=== PATIENT | female | born 1950 | race Caucasian/White ===

== ENCOUNTER 2024-02-07 09:08 | Outpatient (CLI) | payer MEDICARE, SELFPAY ==
--- NOTE | ~2024-02-07 | US_ITS ---
US arterial ankle brachial ind INDICATION: Diabetes. High cholesterol. TECHNIQUE: Segmental pressures and plethysmographic and Doppler waveforms of the brachial and lower e xtremity arteries were obtained. COMPARISON: None. FINDINGS: Right and left brachial artery pressures of 146 mm Hg and 146 mm Hg, respectively, are concordant (no rmal difference <= 30 mmHg). The right ankle-brachial index (ERIK) is 1.12 (normal >= 0.9-1.0). The right great toe-brachial index (TBI) is 0.54 (normal >= 0.60). The left ERIK is 1.18. The left TBI is 0.55. IMPRESSION: 1. Mildly decreased bilateral toe brachial indices, consistent with peripheral arterial disease. Reviewed, dictated and finalized at location A.
== END 2024-02-07 09:09 | disposition home or self-care (01) ==
LOC: ANHIMG 09:11
PROVIDERS: PCP Orthopaedic Surgery; Visit Provider Orthopaedic Surgery
DX: R09.89 Other specified symptoms and signs involving the circulatory and respiratory systems (principal)
CPT/HCPCS: 93922

== ENCOUNTER 2024-02-09 10:05 | Outpatient (CLI) | payer MEDICARE, SELFPAY ==
--- NOTE | 2024-02-09 11:04 | ECG_ITS ---
SEE SCANNED COPY FOR CONFIRMED REPORT MTDD
[2024-02-09 11:26] LABS: Basophils Absolute Auto 0.1 K/mm3 (0.0-0.1); Basophils Percent Auto 0.4 % (0.2-1.2); Hematocrit 46.2 % (37.0-47.0); Hemoglobin 15.1 g/dL (12.0-15.0); Immature Granulocyte Absolute 0.09 K/mm3 (0.00-0.031); Immature Granulocyte Percent A 0.7 % (0-0.5); Lymphocytes Absolute Auto 0.94 K/mm3 (0.9-3.2); Lymphocytes Percent Auto 7.4 % (18.3-44.2); Mean Corpuscular HGB Conc 32.7 g/dl (32-36); Mean Corpuscular Hemoglobin 29.8 pg (26-34); Mean Corpuscular Volume 91.1 fl (80-100); Mean Platelet Volume 10.5 fl (7.4-10.4); Monocytes Absolute Auto 0.4 K/mm3 (0.1-0.6); Monocytes Percent Auto 3.1 % (2.6-8.5); Neutrophils Absolute Auto 11.3 K/mm3 (1.3-6.7); Neutrophils Percent Auto 88.4 % (45.5-73.1); Platelet Count Result 267 k/mm3 (150-375); Red Blood Count 5.07 M/mm3 (4.2-5.4); Red Cell Distribution Width 14.2 % (11.5-14.5); White Blood Count 12.8 K/mm3 (4.5-10.0)
[2024-02-09 11:35] LABS: Albumin Level 4.2 g/dL (3.5-5.1); Anion Gap 8 mmol/L (4-12); Blood Urea Nitrogen 17 mg/dL (7-17); Calcium 10.1 mg/dL (8.4-10.2); Carbon Dioxide 30 mmol/L (22-30); Chloride 100 mmol/L (98-107); Estimated Glomerular Filt Rate > 60; Glucose 130 mg/dL (65-110); Potassium 4.1 mmol/L (3.4-5.0); Sodium 138 mmol/L (137-145); Urine Cotinine NEGATIVE
[2024-02-09 11:43] LABS: Hemoglobin A1C 5.4 % (<5.7)
== END 2024-02-09 10:06 | disposition home or self-care (01) ==
LOC: ANHSURGERY 10:07
PROVIDERS: PCP Physician Assistant Medical; Visit Provider Orthopaedic Surgery
DX: Z01.818 Encounter for other preprocedural examination (principal); M17.11 Unilateral primary osteoarthritis, right knee
CPT/HCPCS: 80048; 80307; 82040; 83036; 85025; 87081; 93005

== ENCOUNTER 2024-02-10 09:14 | Outpatient (CLI) | payer MEDICARE, SELFPAY ==
--- NOTE | ~2024-02-10 | US_ITS ---
EXAMINATION: US art doppler w press LE BI DATE: 02/10/2024 10:38 INDICATION: Other specified symptoms and signs involving the circulatory and respiratory systems. [facility] factors of diabetes, hypertension, hypercholesterolemia and prior smoki ng. TECHNIQUE: Segmental pressures and plethysmographic and Doppler waveforms of the brachial and lower e xtremity arteries were obtained. COMPARISON: None. FINDINGS: Right and left brachial artery pressures of 130 mm Hg and 162 mm Hg, respectively, are concordant (no rmal difference <= 30 mmHg). The right and left high-thigh pressure indices are 1.21 and 1.25, respec tively (normal > 1.2). The right ankle-brachial index (ERIK) is 1.16 (normal >= 0.9-1). The right great toe-brachial index (T BI) is 0.32 (normal >= 0.6-0.8). The right lower extremity segmental pressure gradients are increased between the right above and tgvcn-zyc-utbv popliteal arteries (normal gradients <= 20-30 mmHg betwee n adjacent levels on the same leg or the same levels on the two legs). Arterial waveforms are triphas ic at the right common femoral, superficial femoral and popliteal arteries and biphasic at the right posterior tibial and dorsalis pedis arteries, all with brisk systolic upstrokes. The left ERIK is 1.08. The left TBI is 0.36. The left lower extremity segmental pressure gradients are increased between the left sfggq-twl-qidm popliteal artery and left dorsalis pedis artery. Arterial waveforms are biphasic with brisk systolic upstrokes throughout the arteries of the left lower limb. IMPRESSION: 1. Arterial occlusive disease to bilateral lower limbs with normal bilateral ABIs but mildly decrease d bilateral high thigh pressure indices and moderately decreased bilateral TBIs. Reviewed, dictated and finalized at location A. IMPRESSION: 1. 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
== END 2024-02-10 09:15 | disposition home or self-care (01) ==
PROVIDERS: PCP Physician Assistant Medical; Visit Provider Orthopaedic Surgery
DX: R09.89 Other specified symptoms and signs involving the circulatory and respiratory systems (principal)
CPT/HCPCS: 93923

== ENCOUNTER 2024-02-23 00:43 | Day surgery (SDC) | payer MEDICARE, SELFPAY ==
[2024-02-09 10:26] VITALS: BMI 25.7
--- NOTE | 2024-02-09 10:41 | PC.NURSE ---
Report to the Outpatient Waiting Room, entrance under the green pavilion located off [facility], at time _9:30 AM on date _02/23/24 . Planned Procedure Time: ___11:30 AM . Time changes happen often and if your time is changed the preop area will call you the afternoon before. - You and your visitor will be asked to self-screen and do not enter if you have any COVID symptoms. - A mask is optional within the hospital at this time. Patients may have clear liquids (water, carbonated beverages, clear teas, apple juice) until 3 hours prior to surgery ( 8:30 AM)with a maximum of 20 ounces. - No food from midnight until time of surgery - Infants may have breast milk until 4 hours before surgery, infant formula 6 hours prior to surgery. - Children will be allowed to drink immediately following surgery. If applicable, please bring a bottle or sippy cup to assist with drinking. Juice, water, soda, and popsicles are readily available. For infants on formula, please bring formula the day of surgery. Pacifiers are allowed. Take the following medications with a SIP of water the morning of surgery: _AMLODIPINE,GABAPENTIN,LEVOTHYROXINE DO NOT STOP ANY OF YOUR OTHER PRESCRIPTION MEDICATIONS PRIOR TO SURGERY ?EXCEPT THE FOLLOWING Medications to discontinue per physician _PT STATES HOLD ALL VITAMINS AND SUPPLEMENTS 7 DAYS PRE OP AND _HOLD ALEVE 7 DAYS PRE OP PER DR HOOK.LAST DOSE 02/15/24 MAY TAKE TYLENOL IF NEEDED FOR PAIN. MAY CONTINUE CELEBREX PER DR HOOK BUT DON'T TAKE MORNING OF SURGERY. PT STATES HOLD MOUNJARO PER DR HOOK LAST DOSE 02/13/24 Please no make-up, nail german, hairspray, perfume, deodorant, or body powder the day of surgery. No jewelry (including any body piercings) or valuables the day of surgery, leave them at home. Please take a shower or bath the night before, or the morning of, surgery with an antibacterial soap. Wear comfortable, loose fitting clothing. Children are encouraged to wear pajamas. - Jewelry must be removed prior to entering the operating room. Rings and piercings that are not removed may be cut off. - The hospital will not accept responsibility for valuables. - Please leave all valuables, including medications, at home the day of surgery. If you are going home after surgery, a licensed m48/m60 tank driver must drive you home. - NO public transportation without another adult if you receive anesthesia. - We recommend that an adult stay with you for 24 hours following discharge. - We also recommend that you do not drive, make important decision, drink alcoholic beverages, or take any drugs that were not prescribed by your health care provider for at least 24 hours after your discharge time. Follow any additional instructions given to you from your surgeon. If you or anyone in your household have experienced Covid symptoms in the past week, please notify your surgeon or the nurse liaison at the phone number below for possible testing. VERBAL AND WRITTEN instructions given to __PATIENT AND SPOUSE JOHN and asked if any additional questions and then verbalized understanding. Patient advised to call surgeon office or pre surgery nurse liaison [phone] if any additional questions.
[2024-02-09 11:01] VITALS: BP 150/85; PULSE 79; RESP 18; TEMP 36.6; O2SAT 98
--- NOTE | 2024-02-22 07:20 | PM.IMHP ---
H&P: HPI History of Present Illness Date/Time: 02/22/24 07:20 Chief Complaint: Right knee DJD Narrative: 74-year-old female who presents today for a right total knee arthroplasty. She has been having pain in the right knee for over 5 years. She had her left knee replaced in [place] several years ago and is happy with the recovery. She has been having severe pain in the medial aspect the right knee for last 5 or 6 years. She had cortisone injections last year, last 1 was in June. She takes Celebrex 200 mg daily and has done this for years. She is at point for the knee is becoming debilitating knee painful for her on a daily basis. It is affecting her daily life. She feels at this point she is ready proceed with total knee arthroplasty. Review of Systems Review of Systems: All systems reviewed & are unremarkable except as noted in HPI and below PMFSH Past Medical History Medical History (Updated 01/22/24 @ 10:09 by Ney Rosado MD) Diabetes High cholesterol Hypertension Surgical History Surgical History (Updated 01/20/24 @ 07:41 by Brandee Hernandez CMA) History of left knee replacement History of oophorectomy Family History Family History Mother Hypertension Grandparent Carcinoma of colon Family history of type 2 diabetes mellitus Social History Social History (Updated 01/20/24 @ 07:42 by Brandee Hernandez CMA) Smoking packs per day: 0.75 Smoking cigarettes per day: 15.0 Years smoked: 20 Smoking pack-years: 15.00 Smoking status: Former smoker Tobacco type: cigarettes Second hand tobacco smoke exposure: Yes Smoking end date: 09/19/07 Additional smoking assessment comments: DENIES ANY FORM OF TOBACCO USE Alcohol intake: never Substance use type: does not use Do You Feel Safe in your Home?: Yes Lack of Transportation: No Lack of Food: Never True Current Housing: I Have Housing Concerned About Future Housing: No Difficulty Paying Gas/Electric Bills: No Difficulty Paying for Meds: No Currently Unemployed: No Education: High School Diploma/GED Difficulty w/ Childcare or Family Care: No Living arrangements: with family Occupation/Education: retired Spiritual care concerns: No Meds Home Medications and Allergies Home Medications Medication Instructions Recorded Confirmed Type amlodipine 5 mg tablet 5 mg PO DAILY 01/20/24 02/09/24 History celecoxib 200 mg capsule (Celebrex) 200 mg PO DAILY 01/20/24 02/09/24 History ezetimibe 10 mg tablet 10 mg PO DAILY 01/20/24 02/09/24 History levothyroxine 100 mcg capsule 100 mcg PO DAILY 01/20/24 02/09/24 History metformin 500 mg tablet 500 mg PO BID 01/20/24 02/09/24 History alendronate 70 mg tablet 70 mg PO WEEKLY 02/09/24 02/09/24 History calcium carbonate 600 mg-vitamin 1 tablet PO DAILY 02/09/24 02/09/24 History D3 10 mcg (400 unit) tablet (Calcium 600 + D(3)) sugsgfo-jndqynwuy-fqri tablet 1 tablet PO DAILY 02/09/24 02/09/24 History cinnamon bark 500 mg capsule 500 mg PO DAILY 02/09/24 02/09/24 History (Cinnamon) cyanocobalamin (vitamin B-12) 1,000 mcg PO DAILY 02/09/24 02/09/24 History 1,000 mcg capsule diphenhydramine HCl 25 mg tablet 25 mg PO HS 02/09/24 02/09/24 History (Benadryl Allergy) famotidine 20 mg tablet (Pepcid) 20 mg PO PRN PRN Heartburn 02/09/24 02/09/24 History fluticasone propionate 50 2 spray intranasal DAILY 02/09/24 02/09/24 History mcg/actuation nasal spray,suspension gabapentin 300 mg capsule 300 mg PO BID 02/09/24 02/09/24 History glucosamine sulf dipot 1 cap PO DAILY 02/09/24 02/09/24 History chlr,msm,chond 550 mg-C 30 mg-cristal 1 mg capsule (Glucosamine Chondroitin) tflevyynuuiu-elgxfibo-kymuyr tablet 1 tablet PO DAILY 02/09/24 02/09/24 History naproxen sodium 220 mg capsule 440 mg PO Q12H PRN Pain 02/09/24 02/09/24 History (Aleve) potassium 99 mg tablet 99 mg PO DAILY
[2024-02-23] VITALS (16 sets, daily range): BP systolic 125–149; BP diastolic 69–94; PULSE 83–95; RESP 12–18; TEMP 36.4–37.5; O2SAT 95–100
--- NOTE | ~2024-02-23 | XR_ITS ---
EXAMINATION: [id number] DATE: 02/23/2024 15:08 INDICATION: Total right knee arthroplasty. Postop. TECHNIQUE: 2 views of right knee were obtained. COMPARISON: None. FINDINGS: There is a total right knee arthroplasty in near-anatomic alignment without patellar resurf acing. There are osteophytes of the patella. No fracture. There is gas in the knee joint and soft tis sues, consistent with recent surgery. IMPRESSION: 1. Total right knee arthroplasty in near-anatomic alignment. Reviewed, dictated and finalized at location A.
[2024-02-23] MEDS: ceFAZolin SODIUM 1 GM VIAL 3 GM IRRIGATION (08:55)
[2024-02-23 10:14] LABS: Glucose Point of Care 112 mg/dl (65-105)
[2024-02-23] MEDS: VANCOMYCIN 1,000 MG/NS 250 ML 1,000 MG/250 ML BAG 250 MG IVPB ×2 (10:30→23:39)
[2024-02-23] MEDS: LACTATED RINGERS 1,000 ML 30 ML IV CONT ×2 (10:30→15:10)
[2024-02-23] MEDS: ACETAMINOPHEN 500 MG TABLET 1000 MG PO (10:30)
--- NOTE | 2024-02-23 11:05 | WPDANESEPPF ---
Anes - Initial Pre Proc Eval Procedure: Operation Date: 02/23/24 11:30 Proposed Procedures p Right Total Knee Arthroplasty - Ney Rosado MD Date/Time: 02/23/24 11:05 Surgeon: Ney Rosado MD Pre Op Diagnosis: OA right knee Patient Data Age: 74 Gender: F Height: 1.5 m Weight: 57.9 kg Last Vital Signs Temp 97.9 F 02/09/24 11:01 Pulse 79 02/09/24 11:01 Resp 18 02/09/24 11:01 BP 150/85 H 02/09/24 11:01 Pulse Ox 98 02/09/24 11:01 O2 Del Method Room Air 02/09/24 11:01 Allergies Allergy/AdvReac Type Severity Reaction Status Date / Time nitrofurantoin Allergy Unknown Hives Verified 02/09/24 10:13 Penicillins Allergy Unknown Hives Verified 02/09/24 10:13 Home Medications Medication Instructions Recorded Confirmed Type amlodipine 5 mg tablet 5 mg PO DAILY 01/20/24 02/09/24 History celecoxib 200 mg capsule (Celebrex) 200 mg PO DAILY 01/20/24 02/09/24 History ezetimibe 10 mg tablet 10 mg PO DAILY 01/20/24 02/09/24 History levothyroxine 100 mcg capsule 100 mcg PO DAILY 01/20/24 02/09/24 History metformin 500 mg tablet 500 mg PO BID 01/20/24 02/09/24 History alendronate 70 mg tablet 70 mg PO WEEKLY 02/09/24 02/09/24 History calcium carbonate 600 mg-vitamin 1 tablet PO DAILY 02/09/24 02/09/24 History D3 10 mcg (400 unit) tablet (Calcium 600 + D(3)) vbxgphq-vlqihnbuy-ptow tablet 1 tablet PO DAILY 02/09/24 02/09/24 History cinnamon bark 500 mg capsule 500 mg PO DAILY 02/09/24 02/09/24 History (Cinnamon) cyanocobalamin (vitamin B-12) 1,000 mcg PO DAILY 02/09/24 02/09/24 History 1,000 mcg capsule diphenhydramine HCl 25 mg tablet 25 mg PO HS 02/09/24 02/09/24 History (Benadryl Allergy) famotidine 20 mg tablet (Pepcid) 20 mg PO PRN PRN Heartburn 02/09/24 02/09/24 History fluticasone propionate 50 2 spray intranasal DAILY 02/09/24 02/09/24 History mcg/actuation nasal spray,suspension gabapentin 300 mg capsule 300 mg PO BID 02/09/24 02/09/24 History glucosamine sulf dipot 1 cap PO DAILY 02/09/24 02/09/24 History chlr,msm,chond 550 mg-C 30 mg-cristal 1 mg capsule (Glucosamine Chondroitin) fvojfbaifdur-xchsqsji-ailvba tablet 1 tablet PO DAILY 02/09/24 02/09/24 History naproxen sodium 220 mg capsule 440 mg PO Q12H PRN Pain 02/09/24 02/09/24 History (Aleve) potassium 99 mg tablet 99 mg PO DAILY 02/09/24 02/09/24 History tirzepatide 2.5 mg/0.5 mL 2.5 mg subcut WEEKLY 02/09/24 02/09/24 History subcutaneous pen injector (Mounjaro) tramadol 50 mg tablet 100 mg PO QPM 02/09/24 02/09/24 History triamcinolone acetonide 0.5 % 1 applic topical PRN PRN PSORIASIS 02/09/24 02/09/24 History topical cream Laboratory Tests 02/23/24 10:09 POC Capillary Glucose 112 H mg/dl (65-105) Patient hx anesthesia problems: none Family hx anesthesia problems: none Results Review: All pre-operative results and documents have been reviewed as part of the pre-operative evaluation. [facility] Past Medical History Medical History (Updated 01/22/24 @ 10:09 by Ney Rosado MD) Diabetes High cholesterol Hypertension Surgical History Surgical History (Updated 01/20/24 @ 07:41 by Brandee Hernandez CMA) History of left knee replacement History of oophorectomy Family History Family History Mother Hypertension Grandparent Carcinoma of colon Family history of type 2 diabetes mellitus Social History Social History (Updated 01/20/24 @ 07:42 by Brandee Hernandez CMA) Smoking packs per day: 0.75 Smoking cigarettes per day: 15.0 Years smoked: 20 Smoking pack-years: 15.00 Smoking status: Former smoker Tobacco type: cigarettes Second hand tobacco smoke exposure: Yes Smoking end date: 09/19/07 Additional smoking assessment comments: DENIES ANY FORM OF TOBACCO USE Alcohol intake: never Substance use type: does not use Do You Feel Safe in your Home?: Yes Lack
--- NOTE | 2024-02-23 11:09 | WPDHPUPDATE1 ---
History and Physical Update Update Date/Time: 02/23/24 11:09 History and Physical has been reviewed, including an updated exam of the patient. There are NO changes in the patient's condition. Risks, benefits, and alternatives have been discussed and questions answered. Patient agrees to proceed with procedure.
[2024-02-23] MEDS: ceFAZolin 2 GM/D5W 50 ML 2 GM/50 ML BAG IVPB (11:40)
[2024-02-23] MEDS: SODIUM CHLORIDE 0.9% IV 37.7 ML, MORPHINE SULFATE INJ (*CRX) 2 MG, ROPivacaine HCL 1% 2... INFILTRATE (11:45)
[2024-02-23] MEDS: ceFAZolin SODIUM 1 GM VIAL 3 GM (11:46)
[2024-02-23] MEDS: TRANEXAMIC ACID 1,000 MG/10 ML AMPUL 1000 MG IV PUSH (14:12)
[2024-02-23] MEDS: ceFAZolin SODIUM 1 GM VIAL 2 GM IV PUSH (14:14)
--- NOTE | 2024-02-23 15:05 | W.PM.PROC2 ---
Procedure Note - Detailed Date of Procedure 02/23/24 Pre-op Diagnosis OA right knee Post-op Diagnosis Same Procedure Performed Right total knee replacement Surgeon Ney Rosado MD Nursing Informatics Clinical Analyst Dung Anesthesia General Description of Procedure Patient was brought to the operating room and general anesthesia was administered. She received 2 g of Ancef IV 1 g of TXA weight based vancomycin preoperatively. Under anesthesia there was a 10 or 12 degree flexion contracture and maximum flexion was still only 90?. The right knee was prepped draped usual fashion. Limb was exsanguinated and tourniquet elevated to 235 mmHg. A size 7 in midline incision was used in a vastus medialis splitting approach utilized splitting the vastus medialis at the superior pole of the patella. Partial infrapatellar fat pad excision carried out. Quadriceps synovectomy performed. The patella had prominent osteophytes rimming it but the articular cartilage was actually essentially pristine. A conservative lateral facetectomy was performed. Next a guide randee was inserted down the femoral canal after aspiration of canal contents. Using the 5 degree valgus cutting bushing, I elected to only remove 8 mm of bone from the distal femur which removed equal amounts medially and laterally. There was pronounced wear of the medial femoral condyle distally and posteriorly. Next the tibia was cut. The medial tibial plateau was severely worn medially and very sclerotic with prominent medial osteophyte. We made our cut level 1 mm under the low point of medial tibial plateau and this removed about 9 laterally. Cut was made perpendicular to the axis of the tibia. The PCL was recessed and meniscal remnants were excised. In flexion, the knee accepted a 10 mm spacer block medially at 90? tight and a loose 10 laterally we applied the femoral sizing guide set at 1 degree of external rotation which matched [place]itesides line. We could see again that there was unusually prominent wear from the posterior aspect of the medial femoral condyle. Anterior cut was made to the size 65 cutting block demonstrating that I could applied the 62.5 cutting block and AP and chamfer cuts were made. The 62 phone 5 was about a mm wide in the mediolateral plane but was very appropriate respect the anterior cortex. Several loose bodies were removed from the posterior aspect of the knee at this time. We had access to the posterior femoral osteophyte which was removed this time. We trialed with 10 CR insert and we were quite tight medially and laterally both in flexion and extension. Medial osteophyte was removed from the tibial plateau. The tibia was sized to a 67 with rotation referenced off the anterior cortex and medial 1/3 of the tibial tubercle. This was punched. We trialed with the 10 insert. There was appropriate balance at 90? of flexion with 1 mm of lateral opening 1.5 mm medial opening. We still lacked about 10? of extension and no play medially to valgus stress. 2 mm of bone were removed from the distal femur chamfer cuts revisited. Posterior femoral bone proximal to the posterior condyles of the implant trial was performed and central capsule release was performed. On read trialing the patient had excellent AP stability in all positions but had a barely positive bounce with no play in extension. There is 2-3 mm lateral opening. I elected to remove 1 more mm of bone from the medial femoral condyle to convert alignment to 4? valgus on the distal femoral cut which was confirmed with the 4 degree the wing on the randee and on read trialing now the knee came out to full extension with negative bounce 1 mm medial opening 2-3 mm of lateral opening and appropriate stability throughout range of motion and central patellar tracking. Lug holes were drilled for the femoral component. The tourniquet had been released at 90 minutes and at this point the limb was re-exsanguinated tourniquet real of aided 265 mmHg. Step drill
[2024-02-23 15:24] LABS: Glucose Point of Care 155 mg/dl (65-105)
[2024-02-23] MEDS: fentaNYL CITRATE INJ (*CRX) 100 MCG/2 ML VIAL 25 MCG IV PUSH ×7 (15:34→16:35)
--- NOTE | 2024-02-23 16:55 | ADMGEN ---
This patient, Arabella Salvador, was admitted to Medical Room 257-01. Patient/family oriented to hospital policies and general routines including ID bracelet, bed and alarms, visiting hours, pain management, procedures, bathroom and other care routines, personal items, smoking policy, room service/diet, and visiting hours. Information on how to activate the Rapid Response Team has been discussed. Patient/Family are encouraged to report perceived risks to care and to ask questions if they do not understand what they are told or what they should do.
--- NOTE | 2024-02-23 17:45 | PM.IMCN ---
Assessment and Plan Assessment and plan (1) Primary osteoarthritis of right knee: Code(s): M17.11 - Unilateral primary osteoarthritis, right knee Status: Acute Assessment and Plan: Total R knee arthroplasty done on 02/23/24 with Ashlee BUTTS. - ambulate with assistance and up to chair - use IS - neurovasc checks - see order for intervals - SCDs - resume diet - pain management - zofran PRN for nausea - monitor labs in AM - CBC and BMP - bowel regimen: docusate/senna, polyethylene glycol - maintenance fluids: NS 125 mL/hr x 8 hrs - prophylactic abx - Ancef - PT/OT - full weight bearing status - hold celebrex, naproxen, tramadol, and gabapentin (2) Diabetes: Code(s): E11.9 - Type 2 diabetes mellitus without complications Status: Acute Assessment and Plan: - hypoglycemia protocol - POC blood glucose ACHS - home medication: continue metformin, hold Mounjaro (NF) - correct regimen ordered - low dose TIDWM - A1C 5.4% on 02/09/24 (3) MIRI (iron deficiency anemia): Code(s): D50.9 - Iron deficiency anemia, unspecified Status: Acute Assessment and Plan: - Hgb 15.1 on 02/09/24 - trend - receives iron transfusion once yearly over a 2 week period at [facility] (4) Hypothyroidism: Code(s): E03.9 - Hypothyroidism, unspecified Status: Acute Assessment and Plan: - continue Synthroid 100 mcg daily (5) Hypertension: Code(s): I10 - Essential (primary) hypertension Status: Acute Assessment and Plan: - chronic, currently 134/69 - continue home medications: amlodipine 5 mg daily - monitor Plan Patient presented here for a total right knee replacement due to advanced medial compartment osteoarthritis the right knee. Replacement done on 02/23/24. Home medications reviewed and resumed as appropriate. Monitor CBC, glucose levels, and BP. Diet: diabetic GI Prophylaxis: famotidine po DVT Prophylaxis: SCDs Lines: peripheral Code Status: full code HPI Date of Consult Consult date: 02/23/24 Requesting Physician: Ney Rosado MD Primary Care Provider: Braulio Oneal, PA Consult Narrative Reason for consult: Medical Managment Narrative: 74 y/o F presents here for surgical management of her advanced medial compartment osteoarthritis the right knee with PMH of DM, HLD, hypothyroidism, psoriasis, MIRI, and HTN. Patient presented here for a total right knee replacement due to advanced medial compartment osteoarthritis the right knee. Patient has previously underwent cortisone injections with last one in Jun and Celebrex daily. Has previously underwent a total left knee replacement a few years ago at [facility] and has been pleased with the results. Reports pain has been effecting her ADLs and quality of life, therefore would like to proceed with surgical management that was done today (02/22) with Ashlee BUTTS. Reports mild pain post-operatively. Last BM on 02/21. Denies any recent issues with her DM or blood pressure. Recently started on Mounjaro 2.5 mg SQ daily 3 weeks ago, injection day is on Mondays, and has been held prior to surgery subbed to metformin until it can be restarted. Pre-op workup (02/09/24): WBC 12.8, Hgb 15.1, creatinine 0.5 and GFR >60, and A1C 5.4%. Pre-op vitals: 97.9? F, HR 79, RR 18, 150/85, and 98% on RA. Review of Systems Review of Systems: All systems reviewed & are unremarkable except as noted in HPI and below PMFSH Past Medical History Medical History (Updated 02/23/24 @ 18:08 by Jen Lisa, ANTONIO) Adnexal mass surgical management in 2017, benign Arthritis Carpal tunnel syndrome on both sides Diabetes GERD (gastroesophageal reflux disease) High cholesterol Hypertension Hypothyroidism MIRI (iron deficiency anemia) Kidney stones Psoriasis Surgical History Surgical History (Updated 02/23/24 @ 18:07 by Jen Lisa APRN) History of bilateral cataract extraction History of bilater
[2024-02-23] MEDS: ACETAMINOPHEN 500 MG TABLET PO ×2 (17:50→23:40)
[2024-02-23] MEDS: metFORMIN HCL 500 MG TABLET PO (17:50)
[2024-02-23] MEDS: SENNA/DOCUSATE SODIUM TABLET 2 TAB PO (17:50)
[2024-02-23] MEDS: oxyCODONE HCL (*CRX) 2.5 MG TAB IR PO ×3 (17:50→21:33)
[2024-02-23] MEDS: FAMOTIDINE 20 MG TABLET PO (20:06)
[2024-02-23] MEDS: ceFAZolin 1 GM/NS 50 ML 1 GM/50 ML BAG IVPB (20:06)
[2024-02-23 21:04] LABS: Glucose Point of Care 200 mg/dl (65-105)
[2024-02-23] MEDS: MORPHINE SULFATE (*CRX) 2 MG/ML INJ IV PUSH (23:39)
[2024-02-24 00:30] VITALS: BP 129/72; PULSE 87; RESP 16; TEMP 37.2; O2SAT 96
[2024-02-24] MEDS: oxyCODONE HCL (*CRX) 2.5 MG TAB IR PO ×3 (00:48→04:58)
[2024-02-24 04:48] LABS: Basophils Percent Auto 0.3 % (0.2-1.2); Hematocrit 35.6 % (37.0-47.0); Hemoglobin 11.3 g/dL (12.0-15.0); Immature Granulocyte Absolute 0.04 K/mm3 (0.00-0.031); Immature Granulocyte Percent A 0.4 % (0-0.5); Lymphocytes Absolute Auto 0.99 K/mm3 (0.9-3.2); Lymphocytes Percent Auto 9.4 % (18.3-44.2); Mean Corpuscular HGB Conc 31.7 g/dl (32-36); Mean Corpuscular Volume 91.5 fl (80-100); Mean Platelet Volume 10.5 fl (7.4-10.4); Monocytes Absolute Auto 0.8 K/mm3 (0.1-0.6); Monocytes Percent Auto 7.3 % (2.6-8.5); Neutrophils Absolute Auto 8.7 K/mm3 (1.3-6.7); Neutrophils Percent Auto 82.6 % (45.5-73.1); Platelet Count Result 195 k/mm3 (150-375); Red Blood Count 3.89 M/mm3 (4.2-5.4); Red Cell Distribution Width 13.7 % (11.5-14.5); White Blood Count 10.6 K/mm3 (4.5-10.0)
[2024-02-24] MEDS: ceFAZolin 1 GM/NS 50 ML 1 GM/50 ML BAG IVPB ×2 (04:57→12:16)
[2024-02-24] MEDS: LEVOTHYROXINE SODIUM 100 MCG TABLET PO (05:02)
[2024-02-24] MEDS: ACETAMINOPHEN 500 MG TABLET PO ×2 (05:02→12:16)
[2024-02-24 05:06] LABS: Anion Gap 4 mmol/L (4-12); Blood Urea Nitrogen 12 mg/dL (7-17); Calcium 8.5 mg/dL (8.4-10.2); Carbon Dioxide 28 mmol/L (22-30); Chloride 103 mmol/L (98-107); Estimated Glomerular Filt Rate > 60; Glucose 121 mg/dL (65-110); Potassium 3.9 mmol/L (3.4-5.0); Sodium 135 mmol/L (137-145)
--- NOTE | 2024-02-24 07:37 | PM.PNORT ---
Subjective Subjective Date/Time Seen: 02/24/24 07:37 Interval history: Postop day 1 patient is alert. She is afebrile vital signs are stable. Morning labs are noted and appear to be stable. Dressing is intact. Patient had increased pain overnight with a soft tissue block wore off. She does not feel that the oxycodone 2.5 mg is working well enough so we will increase her to 5 mg. Celebrex 100 mg for get started this morning this should help with her pain as well. She has mild swelling ecchymosis around the knee. She has been up to the restroom overnight. Therapy will work with her today, both this morning and this afternoon and then once IV antibiotics are done this afternoon she will be discharged home. Objective Data Vital Signs Vital Signs: Vital Signs - 24 hr 02/23/24 10:30 02/23/24 15:10 02/23/24 15:25 Temperature 98 F 98.3 F Pulse Rate 93 83 86 Respiratory Rate 14 13 14 Blood Pressure 126/79 125/72 134/74 Pulse Oximetry 100 100 100 Oxygen Delivery Room Air Simple Face Mask Simple Face Mask Oxygen Flow Rate 8 8 02/23/24 15:40 02/23/24 15:50 02/23/24 16:05 Temperature Pulse Rate 89 90 95 Respiratory Rate 16 14 16 Blood Pressure 140/80 128/77 137/78 Pulse Oximetry 100 100 97 Oxygen Delivery Simple Face Mask Simple Face Mask Nasal Cannula Oxygen Flow Rate 8 8 2 02/23/24 16:10 02/23/24 16:20 02/23/24 16:30 Temperature 98.1 F Pulse Rate 89 89 92 Respiratory Rate 12 15 12 Blood Pressure 132/81 149/77 H 142/87 H Pulse Oximetry 99 99 99 Oxygen Delivery Nasal Cannula Nasal Cannula Nasal Cannula Oxygen Flow Rate 2 2 2 02/23/24 16:43 02/23/24 17:00 02/23/24 16:55 Temperature 98.4 F Pulse Rate 91 95 Respiratory Rate 18 18 16 Blood Pressure 142/80 H 138/94 H Pulse Oximetry 100 95 100 Oxygen Delivery Nasal Cannula Nasal Cannula Oxygen Flow Rate 2 2 02/23/24 17:10 02/23/24 17:40 02/23/24 18:40 Temperature 97.9 F 97.9 F 99.5 F Pulse Rate 94 93 92 Respiratory Rate 16 16 16 Blood Pressure 128/72 134/69 137/78 Pulse Oximetry 98 97 97 Oxygen Delivery Oxygen Flow Rate 02/23/24 22:32 02/24/24 00:30 Temperature 97.5 F L 98.9 F Pulse Rate 95 87 Respiratory Rate 16 16 Blood Pressure 136/69 129/72 Pulse Oximetry 97 96 Oxygen Delivery Oxygen Flow Rate Intake/Output Intake/Output: Intake & Output 02/21/24 02/22/24 02/23/24 02/24/24 23:59 23:59 23:59 23:59 Intake Total 730 600 Balance 730 600 Meds/Results Medications: Active Medications Generic Name Dose Route Start Last Admin Trade Name Freq PRN Reason Stop Dose Admin Acetaminophen 500 mg 02/23/24 18:00 02/24/24 05:02 Acetaminophen 500 Mg Tablet PO 500 mg Q6H KASSANDRA Administration Amlodipine Besylate 5 mg 02/24/24 09:00 Amlodipine Besylate 5 Mg Tablet PO DAILY KASSANDRA Apixaban 2.5 mg 02/24/24 09:00 Apixaban 2.5 Mg Tablet PO 03/06/24 21:01 Q12HR [facility] Cefdinir 300 mg 02/24/24 09:00 Cefdinir 300 Mg Capsule PO Q12HR KASSANDRA Celecoxib 100 mg 02/24/24 08:00 Celecoxib 100 Mg Capsule PO DAILY@0800 [facility] Dextrose 12.5 gm 02/23/24 18:11 Dextrose 50% 25 Gm/50 Ml Syringe IV PUSH PRN PRN Hypoglycemia Protocol Diphenhydramine HCl 25 mg 02/23/24 16:47 Diphenhydramine Hcl Inj 50 Mg/Ml Vial IV PUSH Q6H PRN Itching Ezetimibe 10 mg 02/24/24 09:00 Ezetimibe 10 Mg Tablet PO DAILY [facility] Famotidine 20 mg 02/23/24 21:00 02/23/24 20:06 Famotidine 20 Mg Tablet PO 20 mg Q12HR [facility] Administration Glucagon 1 mg 02/23/24 18:11 Glucagon For Inj 1 Mg Vial IM PRN PRN Hypoglycemia Protocol Glucose 15 gm 02/23/24 18:11 Glucose Oral Gel 15 Gm Of Glucse In 37.5 Gm Tube PO PRN PRN Hypoglycemia Protocol Cefazolin Sodium 1 gm in 50 mls @ 100 mls/hr 02/23/24 20:00 02/24/24 05:27 Ancef 1 Gm/Ns 50 Ml IVPB 06/07/24 12:29 Infused Q8H KASSANDRA Infusion Vancomycin HCl 1,000 mg in 25
--- NOTE | 2024-02-24 07:43 | PM.DS ---
DS: Admitting Diagnosis Discharge Date 02/23 Admitting Diagnosis Right knee DJD DS: Discharge Diagnosis Discharge Diagnosis (1) Primary osteoarthritis of right knee: Code(s): M17.11 - Unilateral primary osteoarthritis, right knee Status: Acute DS: Summary Hospital Course Hospital Course: 74-year-old female who underwent right total knee arthroplasty on 02/22. Underwent the procedure without complications. Postoperatively she has been afebrile vital signs are stable. Neurovascularly she is intact. Dressing is dry and intact. She is weight-bearing as tolerated. She is on Eliquis for DVT prophylaxis. She is on Celebrex 100 mg a day well she is on the Eliquis. This will be increased to 200 a day when she is off the Eliquis. She is taking oxycodone 5 mg as well as Tylenol every 6 hours for pain control. Patient be discharged home on 02/23. She was advised to keep leg elevated home prevent swelling but do her exercises on basis. She has outpatient therapy starting next Tuesday. She will go home on a 10 day course of Omnicef due to her history of diabetes. She also go home on Senokot MiraLax for constipation. Labs on the morning of postop day 1 were stable. Patient was advised any questions or concerns she is to call the office otherwise we will see her at her appointed dates. Time Spent with Patient Time attestation: Total time spent providing and/or coordinating discharge services: DS: Data Data Completed and Pending Labs on day of discharge: Labs from last 24 hours 02/24/24 02/23/24 02/23/24 04:33 20:38 15:20 WBC 10.6 H RBC 3.89 L Hgb 11.3 L D Hct 35.6 L MCV 91.5 MCH 29.0 MCHC 31.7 L RDW 13.7 Plt Count 195 MPV 10.5 H Immature Gran % (Auto) 0.4 Neut % (Auto) 82.6 H Lymph % (Auto) 9.4 L [place] % (Auto) 7.3 Eos % (Auto) 0.0 Baso % (Auto) 0.3 Lymph # (Auto) 0.99 [place] # (Auto) 0.8 H Eos # (Auto) 0.0 Baso # (Auto) 0.0 Abs Immat Gran (auto) 0.04 H Absolute Neuts (auto) 8.7 H Absolute Nucleated RBC 0.000 Nucleated RBC % 0.0 Sodium 135 L Potassium 3.9 Chloride 103 Carbon Dioxide 28 Anion Gap 4 BUN 12 D Creatinine 0.60 L Estim Creat Clear Calc Not Reportable Estimated GFR > 60 Glucose 121 H POC Capillary Glucose 200 H 155 H Calcium 8.5 Blood Type Antibody Screen 02/23/24 02/23/24 10:09 10:05 WBC RBC Hgb Hct MCV MCH MCHC RDW Plt Count MPV Immature Gran % (Auto) Neut % (Auto) Lymph % (Auto) [place] % (Auto) Eos % (Auto) Baso % (Auto) Lymph # (Auto) [place] # (Auto) Eos # (Auto) Baso # (Auto) Abs Immat Gran (auto) Absolute Neuts (auto) Absolute Nucleated RBC Nucleated RBC % Sodium Potassium Chloride Carbon Dioxide Anion Gap BUN Creatinine Estim Creat Clear Calc Estimated GFR Glucose POC Capillary Glucose 112 H Calcium Blood Type O Negative Antibody Screen Negative Discharge Plan Discharge Patient Disposition: Home, Self-Care Discharge Instructions: NELSY HOOK M.D [facility] [address] [place] [address] [address] [place] [address] POST-OPERATIVE DISCHARGE INSTRUCTIONS TOTAL KNEE ARTHROPLASTY 1. When resting, do not rest in the chair.When resting, lie on your back, with back flat on the couch or bed, with leg elevated above heart to minimize swelling. You may put a pillow under your head. . Significant swelling could indicate a blood clot and if this occurs call the office (or go to the ER) to have a venous ultrasound. Therefore, do not rest in a chair. 2. At least five times a day spend several minutes stretching your knee into flexion while sitting in the chair and also stretching your knee out straight The abilities to bend your knee fully and straighten your knee fully are two most important knee functions to focus on during your recove
[2024-02-24 07:50] VITALS: BP 116/69; PULSE 90; RESP 16; TEMP 36.3; O2SAT 97
[2024-02-24 07:58] LABS: Glucose Point of Care 115 mg/dl (65-105)
[2024-02-24] MEDS: oxyCODONE HCL (*CRX) 5 MG TAB IR PO ×2 (08:06→12:15)
[2024-02-24] MEDS: EZETIMIBE 10 MG TABLET PO (08:07)
[2024-02-24] MEDS: CELECOXIB 100 MG CAPSULE PO (08:07)
[2024-02-24] MEDS: SENNA/DOCUSATE SODIUM TABLET 2 TAB PO (08:07)
[2024-02-24] MEDS: metFORMIN HCL 500 MG TABLET PO (08:07)
[2024-02-24] MEDS: FAMOTIDINE 20 MG TABLET PO (08:07)
[2024-02-24] MEDS: polyethylene glycoL 3350 17 GM POWD.PACK PO (08:07)
[2024-02-24] MEDS: amLODIPine BESYLATE 5 MG TABLET PO (08:07)
[2024-02-24] MEDS: APIXABAN 2.5 MG TABLET PO (08:08)
[2024-02-24] MEDS: CEFDINIR 300 MG CAPSULE PO (08:08)
--- NOTE | 2024-02-24 09:45 | WPDANESPN ---
Anes - Prog Note Post-Op Date/Time: 02/24/24 09:45 Cardiovascular status: normal Respiratory status: normal Airway patency: baseline Mental status: baseline Post-Op hydration status: normal Vital Signs: Last Vital Signs Temp 36.3 C L 02/24/24 07:50 Pulse 90 02/24/24 07:50 Resp 16 02/24/24 07:50 BP 116/69 02/24/24 07:50 Pulse Ox 97 02/24/24 07:50 O2 Del Method Room Air 02/24/24 08:50 O2 Flow Rate 2 02/23/24 17:00 Pain Score (VAS): 11/26 I/O: Intake & Output 02/23/24 02/24/24 02/24/24 23:59 07:59 15:59 Intake Total 680 600 480 Balance 680 600 480 Laboratory Tests 02/24/24 04:33 02/24/24 04:33 02/23/24 02/23/24 02/23/24 10:05 10:09 15:20 WBC RBC Hgb Hct MCV MCH MCHC RDW Plt Count MPV Immature Gran % (Auto) Neut % (Auto) Lymph % (Auto) [place] % (Auto) Eos % (Auto) Baso % (Auto) Lymph # (Auto) [place] # (Auto) Eos # (Auto) Baso # (Auto) Abs Immat Gran (auto) Absolute Neuts (auto) Absolute Nucleated RBC Nucleated RBC % Sodium Potassium Chloride Carbon Dioxide Anion Gap BUN Creatinine Estim Creat Clear Calc Estimated GFR Glucose POC Capillary Glucose 112 H 155 H Calcium Blood Type O Negative Antibody Screen Negative 02/23/24 02/24/24 02/24/24 20:38 04:33 07:51 WBC 10.6 H RBC 3.89 L Hgb 11.3 L D Hct 35.6 L MCV 91.5 MCH 29.0 MCHC 31.7 L RDW 13.7 Plt Count 195 MPV 10.5 H Immature Gran % (Auto) 0.4 Neut % (Auto) 82.6 H Lymph % (Auto) 9.4 L [place] % (Auto) 7.3 Eos % (Auto) 0.0 Baso % (Auto) 0.3 Lymph # (Auto) 0.99 [place] # (Auto) 0.8 H Eos # (Auto) 0.0 Baso # (Auto) 0.0 Abs Immat Gran (auto) 0.04 H Absolute Neuts (auto) 8.7 H Absolute Nucleated RBC 0.000 Nucleated RBC % 0.0 Sodium 135 L Potassium 3.9 Chloride 103 Carbon Dioxide 28 Anion Gap 4 BUN 12 D Creatinine 0.60 L Estim Creat Clear Calc Not Reportable Estimated GFR > 60 Glucose 121 H POC Capillary Glucose 200 H 115 H Calcium 8.5 Blood Type Antibody Screen Post-procedural complaints: none Patient Feedback: Patient satisfied with anesthetic care.
[2024-02-24] MEDS: VANCOMYCIN 1,000 MG/NS 250 ML 1,000 MG/250 ML BAG 250 MG IVPB (10:54)
--- NOTE | 2024-02-24 11:22 | PM.IMPN ---
Progress Note: A&P Assessment and Plan (1) Primary osteoarthritis of right knee: Code(s): M17.11 - Unilateral primary osteoarthritis, right knee Status: Acute Assessment and Plan: Total R knee arthroplasty done on 02/23/24 with Ashlee BUTTS. - ambulate with assistance and up to chair - use IS - neurovasc checks - see order for intervals - SCDs - resume diet - pain management - zofran PRN for nausea - monitor labs in AM - CBC and BMP - bowel regimen: docusate/senna, polyethylene glycol - maintenance fluids: NS 125 mL/hr x 8 hrs - prophylactic abx - Ancef - PT/OT - full weight bearing status - hold celebrex, naproxen, tramadol, and gabapentin (2) Diabetes: Code(s): E11.9 - Type 2 diabetes mellitus without complications Status: Acute Assessment and Plan: - glucose 151 - hypoglycemia protocol - POC blood glucose ACHS - home medication: continue metformin, hold Mounjaro (NF) - correct regimen ordered - low dose TIDWM - A1C 5.4% on 02/09/24 (3) MIRI (iron deficiency anemia): Code(s): D50.9 - Iron deficiency anemia, unspecified Status: Acute Assessment and Plan: - Hgb 15.1 on 02/09/24 - Hgb current 11.3 - trend - receives iron transfusion once yearly over a 2 week period at [facility] (4) Hypothyroidism: Code(s): E03.9 - Hypothyroidism, unspecified Status: Acute Assessment and Plan: - continue Synthroid 100 mcg daily (5) Hypertension: Code(s): I10 - Essential (primary) hypertension Status: Acute Assessment and Plan: - chronic, currently 134/69 - Stable currently 116/69 - continue home medications: amlodipine 5 mg daily - monitor Plan Patient presented here for a total right knee replacement due to advanced medial compartment osteoarthritis the right knee. Replacement done on 02/23/24. Home medications reviewed and resumed as appropriate. Monitor CBC, glucose levels, and BP. Diet: diabetic GI Prophylaxis: famotidine po DVT Prophylaxis: SCDs Lines: peripheral Code Status: full code Time Spent With Patient Time: 38 minutes Time with patient: Greater than 35 minutes Subjective Date/time seen: 02/24/24 11:15 Interval history: 02/23/2024 1745 74 y/o F presents here for surgical management of her advanced medial compartment osteoarthritis the right knee with PMH of DM, HLD, hypothyroidism, psoriasis, MIRI, and HTN. Patient presented here for a total right knee replacement due to advanced medial compartment osteoarthritis the right knee. Patient has previously underwent cortisone injections with last one in Jun and Celebrex daily. Has previously underwent a total left knee replacement a few years ago at [facility] and has been pleased with the results. Reports pain has been effecting her ADLs and quality of life, therefore would like to proceed with surgical management that was done today (02/22) with Ashlee BUTTS. Reports mild pain post-operatively. Last BM on 02/21. Denies any recent issues with her DM or blood pressure. Recently started on Mounjaro 2.5 mg SQ daily 3 weeks ago, injection day is on Mondays, and has been held prior to surgery subbed to metformin until it can be restarted. Pre-op workup (02/09/24): WBC 12.8, Hgb 15.1, creatinine 0.5 and GFR >60, and A1C 5.4%. Pre-op vitals: 97.9? F, HR 79, RR 18, 150/85, and 98% on RA. 02/24/24 1115 Currently patient is sitting in the bed. She stated that she is having a little bit of pain. She stated that the pain is currently a 3/10. She denies any other problems including chest pain, shortness of breath, nausea, vomiting, diarrhea, or constipation. From a hospitalist view she is stable for discharge when primary service agrees. Labs and vital signs are stable. Review of Systems Review of Systems: All systems reviewed & are unremarkable except as noted in HPI and below Exam Narrative: General: well-nourished, well-appearing 74-year-old female, si
[2024-02-24 11:45] LABS: Glucose Point of Care 171 mg/dl (65-105)
[2024-02-24 12:58] VITALS: BP 109/75; PULSE 100; RESP 16; TEMP 36.1; O2SAT 99
== END 2024-02-24 14:06 | disposition home or self-care (01) ==
LOC: ANHSURGERY 09:31 → ANH2MED 16:49
PROVIDERS: Physician Assistant Surgical; PCP Physician Assistant Medical; Visit Provider Orthopaedic Surgery
PROC: (CPT 27447; principal; 2024-02-23 11:30)
DX: M17.11 Unilateral primary osteoarthritis, right knee (principal); D50.9 Iron deficiency anemia, unspecified; E11.9 Type 2 diabetes mellitus without complications; E78.00 Pure hypercholesterolemia, unspecified; I10 Essential (primary) hypertension; E03.9 Hypothyroidism, unspecified; K21.9 Gastro-esophageal reflux disease without esophagitis; Z87.891 Personal history of nicotine dependence; Z79.84 Long term (current) use of oral hypoglycemic drugs; Z79.85 Long-term (current) use of injectable non-insulin antidiabetic drugs
CPT/HCPCS: 27447; 36415; 73560; 80048; 80307; 82040; 82948; 83036; 85025; 86850; 86900; 86901; 87081; 93005; 97110; 97116; 97161; 97165; 97530; A9270; C1713; C1776; J0171; J0330; J0690; J1100; J1170; J1200; J1885; J2250; J2270; J2371; J2405; J2704; J2795; J3010; J3370; J7120